=== PATIENT | female | born 1965 ===

== ENCOUNTER 2024-06-03 10:07 | Outpatient (CLI) | payer OTHER ==
[2024-06-03 12:27] LABS: CHOL HDL RATIO 2.6 (0-5.0)
[2024-06-05 21:09] LABS: chla t Negative (Negative); neiss Negative (Negative)
== END 2024-06-03 10:08 | disposition home or self-care (01) ==
LOC: LAB 10:07
PROVIDERS: ATTEND Obstetrics & Gynecology
DX: A60.04 Herpesviral vulvovaginitis (principal)